=== PATIENT | male | born 1990 | race African-American/Black ===

== ENCOUNTER 2016-10-07 11:47 | Observation (INO) | payer OTHER ==
[2016-10-07] MEDS ORDERED: Aspirin Low Dose CHEW TAB* 81 MG PO ONE (12:02)
[2016-10-07 12:20] LABS: Hematocrit 41 % (42-52); Hemoglobin 13.2 g/dl (14.0-18.0); Mean Corpuscular HGB Conc 32 g/dl (31-36); Mean Corpuscular Hemoglobin 28 pg (27-31); Mean Corpuscular Volume 86 fL (80-94); Mean Platelet Volume 9 um3 (7.4-10.4); Red Blood Count 4.73 10^6/ul (4.0-5.4); Red Cell Distribution Width 12 % (10.5-15); White Blood Count 6.2 10^3/ul (3.5-10.8)
[2016-10-07 12:37] LABS: Albumin 4.5 g/dL (3.2-5.2); BUN/Creatinine Ratio 13.6 (8-20); Calcium 9.5 mg/dL (8.6-10.3); EGFR African American 89.8 (>60); EGFR Non-African American 69.8 (>60); Globulin 2.9 g/dL (2-4); Magnesium 2.1 mg/dL (1.9-2.7); Potassium 4.4 mmol/L (3.5-5.0); Total Bilirubin 0.6 mg/dL (0.2-1.0); Total Protein 7.4 g/dL (6.4-8.9)
--- NOTE | 2016-10-07 12:48 | RAD ---
Indication: Chest pain. EKG changes. History of myocardial infarction. Comparison: No relevant prior exams available on the [facility] [place] for comparison. Technique: Upright AP 1250 hours Report: Accounting for superimposed soft tissues with hypertrophied pectoralis musculature or breast tissue the lungs and pleural spaces are clear. Negative for pneumothorax. The heart, pulmonary vasculature, and mediastinal contours are unremarkable. IMPRESSION: No evidence for acute intrathoracic disease.
[2016-10-07 13:17] LABS: T4 4.55 mcg/mL (6.09-12.23)
[2016-10-07 13:18] LABS: TSH (Thyroid Stimulating Horm) 1.22 mcIU/mL (0.34-5.60)
--- NOTE | 2016-10-07 18:14 | ED ---
Kyle Hummel Billy, scribed for Andrey Vazquez MD on 10/07/16 at 1210 . Complex/Multi-Sys Presentation - HPI Summary HPI Summary: Patient is a 26 year-old male coming to [facility] from skilled nursing for evaluation of an abnormal EKG. He is completely asymptomatic at this time, denying chest pain, shortness of breath, nausea, vomiting, or diaphoresis. He reports a previous RI approximately 2 months ago, where he was seen and treated at [facility]. He reports a family history of RI in his maternal uncle at age 38. - History Of Current Complaint Chief Complaint: EDChestPainROMI Time Seen by Provider: 10/07/16 12:02 Hx Obtained From: Patient Severity Currently: None Location: Negative Aggravating Factor(s): n/a Alleviating Factor(s): n/a Associated Signs And Symptoms: Negative: SOB, Chest Pain, Nausea, Vomiting, Diaphoresis - Allergies/Home Medications Allergies/Adverse Reactions: Allergies Allergy/AdvReac Type Severity Reaction Status Date / Time Aspirin [ASA] Allergy Unknown Verified 10/07/16 12:33 Reaction Details Shellfish Allergy Allergy Unknown Verified 10/07/16 12:33 Reaction Details Home Medications: Home Medications NK [No Home Medications Reported] 10/07/16 [History Confirmed 10/07/16] PMH/Surg Hx/FS Hx/Imm Hx Cardiovascular History: Reports: Hx Hypertension, Hx Myocardial Infarction Sensory History: Denies: Hx Deafness Opthamlomology History: Denies: Hx Legally Blind Infectious Disease History: No Infectious Disease History: Denies: Traveled Outside the [place] in Last 30 Days - Family History Known Family History: Positive: Cardiac Disease - Social History Alcohol Use: None Substance Use Type: Reports: None, Marijuana Smoking Status (MU): Current Every Day Smoker Review of Systems Negative: Skin Diaphoresis Negative: Chest Pain Negative: Shortness Of Breath Negative: Vomiting, Nausea Negative: Syncope All Other Systems Reviewed And Are Negative: Yes Physical Exam - Summary Physical Exam Summary: VITAL SIGNS: Reviewed. GENERAL: Patient is a well developed and nourished male who is lying comfortable in the stretcher. Patient is not in any acute respiratory distress. HEAD AND FACE: No signs of trauma. No ecchymosis, hematomas or skull depressions. No sinus tenderness. EYES: PERRLA, EOMI x 2, No injected conjunctiva, no nystagmus. EARS: Hearing grossly intact. Ear canals and tympanic membranes are within normal limits. MOUTH: Oropharynx within normal limits. NECK: Supple, trachea is midline, no adenopathy, no JVD, no carotid bruit, no c- spine tenderness, neck with full ROM. CHEST: Symmetric, no tenderness at palpation LUNGS: Clear to auscultation bilaterally. No wheezing or crackles. CVS: Regular rate and rhythm, S1 and S2 present, no murmurs or gallops appreciated. ABDOMEN: Soft, non-tender. No signs of distention. No rebound no guarding, and no masses palpated. Bowel sounds are normal. EXTREMITIES: FROM in all major joints, no edema, no cyanosis or clubbing. NEURO: Alert and oriented x 3. No acute neurological deficits. Speech is normal and follows commands. SKIN: Dry and warm Triage Information Reviewed: Yes Vital Signs On Initial Exam: Initial Vitals Temp Pulse Resp BP Pulse Ox 98.8 F 65 20 116/87 98 10/07/16 11:59 10/07/16 11:59 10/07/16 11:59 10/07/16 11:59 10/07/16 11:59 Vital Signs Reviewed: Yes - [place] Coma Scale Coma Scale Total: 15 Diagnostics - Vital Signs Vital Signs Temp Pulse Resp BP Pulse Ox 10/07/16 12:01 98.8 F 62 20 116/87 99 10/07/16 11:59 98.8 F 65 20 116/87 98 - Laboratory Lab Results: Lab Results 10/07/16 10/07/16 10/07/16 Range/Units 12:07 12:07 12:07 WBC 6.2 (3.5-10.8) 10^3/ul RBC 4.73 (4.0-5.4) 10^6/ul Hgb 13.2 L (14.0-18.0) g/dl Hct 41 L (42-52) % MCV 86 (80-94) fL MCH 28 (27-31) pg MCHC 32 (31-36) g/dl RDW 12 (10.5-15) % Plt Count 190 (150-450) 10^3/ul MPV 9 (7.4-10.4) um3 Neut % (Auto) 46.4 (38-83) % Lymph % (Auto) 40.2 (25-47) % [place] % (Auto) 10.1 H (1-9) % Eos % (Auto) 2.5 (0-6) % Baso % (Auto) 0.8 (0-2) % Absolute Neuts (auto) 2.9 (1.5-7.7) 10^3/ul Absolute Lymphs (auto) 2.5 (1.0-4.8) 10^3/ul Absolute Monos (auto) 0.6 (0-0.8) 10^3/ul Absolute Eos (auto) 0.2 (0-0.6) 10^3/ul Absolute Basos (auto) 0 (0-0.2) 10^3/ul Absolute Nucleated RBC 0.01 10^3/ul Nucleated RBC % 0.2 Sodium 139 (133-145) mmol/L Potassium 4.4 (3.5-5.0) mmol/L Chloride 108 (101-111) mmol/L Carbon Dioxide 24 (22-32) mmol/L Anion Gap 7 (2-11) mmol/L BUN 17 (6-24) mg/dL Creatinine 1.25 H (0.67-1.17) mg/dL Est GFR ( Amer) 89.8 (>60) Est GFR (Non-Af Amer) 69.8 (>60) BUN/Creatinine Ratio 13.6 (8-20) Glucose 80 (70-100) mg/dL Lactic Acid 1.3 (0.5-2.0) mmol/L Calcium 9.5 (8.6-10.3) mg/dL Magnesium 2.1 (1.9-2.7) mg/dL Total Bilirubin 0.60 (0.2-1.0) mg/dL AST 55 H (13-39) U/L ALT 38 (7-52) U/L Alkaline Phosphatase 64 (34-104) U/L CK-MB (CK-2) 10.2 H (0.6-6.3) ng/mL Myoglobin 140.7 H (17.4-105.7) ng/mL Troponin I 0.00 (<0.04) ng/mL B-Natriuretic Peptide ( - 100) pg/mL Total Protein 7.4 (6.4-8.9) g/dL Albumin 4.5 (3.2-5.2) g/dL Globulin 2.9 (2-4) g/dL Albumin/Globulin Ratio 1.6 (1-3) TSH 1.22 (0.34-5.60) mcIU/mL Thyroxine (T4) 4.55 L (6.09-12.23) mcg/mL // Range/Units 12:07 WBC (3.5-10.8) 10^3/ul RBC (4.0-5.4) 10^6/ul Hgb (14.0-18.0) g/dl Hct (42-52) % MCV (80-94) fL MCH (27-31) pg MCHC (31-36) g/dl RDW (10.5-15) % Plt Count (150-450) 10^3/ul MPV (7.4-10.4) um3 Neut % (Auto) (38-83) % Lymph % (Auto) (25-47) % [place] % (Auto) (1-9) % Eos % (Auto) (0-6) % Baso % (Auto) (0-2) % Absolute Neuts (auto) (1.5-7.7) 10^3/ul Absolute Lymphs (auto) (1.0-4.8) 10^3/ul Absolute Monos (auto) (0-0.8) 10^3/ul Absolute Eos (auto) (0-0.6) 10^3/ul Absolute Basos (auto) (0-0.2) 10^3/ul Absolute Nucleated RBC 10^3/ul Nucleated RBC % Sodium (133-145) mmol/L Potassium (3.5-5.0) mmol/L Chloride (101-111) mmol/L Carbon Dioxide (22-32) mmol/L Anion Gap (2-11) mmol/L BUN (6-24) mg/dL Creatinine (0.67-1.17) mg/dL Est GFR ( Amer) (>60) Est GFR (Non-Af Amer) (>60) BUN/Creatinine Ratio (8-20) Glucose (70-100) mg/dL Lactic Acid (0.5-2.0) mmol/L Calcium (8.6-10.3) mg/dL Magnesium (1.9-2.7) mg/dL Total Bilirubin (0.2-1.0) mg/dL AST (13-39) U/L ALT (7-52) U/L Alkaline Phosphatase (34-104) U/L CK-MB (CK-2) (0.6-6.3) ng/mL Myoglobin (17.4-105.7) ng/mL Troponin I (<0.04) ng/mL B-Natriuretic Peptide 18 ( - 100) pg/mL Total Protein (6.4-8.9) g/dL Albumin (3.2-5.2) g/dL Globulin (2-4) g/dL Albumin/Globulin Ratio (1-3) TSH (0.34-5.60) mcIU/mL Thyroxine (T4) (6.09-12.23) mcg/mL Result Diagrams: 10/07/16 12:07 10/07/16 12:07 Lab Statement: Any lab studies that have been ordered have been reviewed, and results considered in the medical decision making process. - Radiology CXR Xray Interpretation: No Acute Changes Radiology Interpretation Completed By: Radiologist - EKG 1145 EKG Interpretation: sinus bradycardia 59 bpm; ST elevation V2, V3, V4; TWI in II and aVF Re-Evaluation - Re-Evaluation First Eval Re-Evaluation Time: 16:38 Change: Unchanged Comment: He continues to be asymptomatic. Labs reviewed, course of treatment discussed. Complex Multi-Symp Course/Dx Assessment/Plan: Patient is a 26 year-old male coming to [facility] from skilled nursing for evaluation of an abnormal EKG. He is completely asymptomatic at this time, denying chest pain, shortness of breath, nausea, vomiting, or diaphoresis. He reports a previous RI approximately 2 months ago, where he was seen and treated at [facility]. He reports a family history of RI in his maternal uncle at age 38. Test results WNL except for mild anemia, creatinine of 1.25, myoglobin of 140.7, CK-MB of 10.2, and trop of 0.00. TSH is 4.55. EKG shows ALEXANDER in V2-V4. CXR shows no acute pathology. Patient continues to be asymptomatic without any chest pain. I ran the case with Dr. Green and he thinks that he has no STEMI. Therefore, I did a second troponin 4 hours later which came out to be 0.05. At this point, I discussed with Dr. Green again, and he still does not believe that the patient has STEMI, therefore I discussed the case with Dr. Cota who accepted the patient for admission. He continues to be asymptomatic without any CP, SOB, or palpitations. No dizziness or diaphoresis. The patient is lying comfortably in the stretcher. - Diagnoses Differential Diagnoses/HQI/PQRI: Cardiac Ischemia Provider Diagnoses: increased troponin r/o ACS - Physician Notifications Discussed Care Of Patient With: Dr. Green (interventionalist) at 1205: requested previous EKG from [facility]. Dr. Cota ( hospitalist) at 1630: speak with Dr. Green, and in the meantime, repeat troponin. Dr. Green (interventionalist) at 1656: admit to hospitalist. Dr. Cota (hospitalist) at 1657: accepts admission. Discharge - Discharge Plan Condition: Stable Disposition: ADMITTED TO [facility] Referrals: Tyrone GARCIA,Catherine Blankenship [Primary Care Provider] - The documentation as recorded by the Kyle guevara Billy accurately reflects the service I personally performed and the decisions made by me, Andrey Vazquez MD.
[2016-10-07] MEDS ORDERED: NS 0.9% 1000 ML* 1,000 ML IV ONE (19:00)
[2016-10-07] MEDS ORDERED: Ondansetron INJ* 2 MG/ML VIAL IV PRN (19:35)
[2016-10-07] MEDS ORDERED: Acetaminophen TAB* 325 MG PO PRN (19:35)
[2016-10-07] MEDS: NS 0.9% 1000 ML* 1,000 ML IV SCH (21:45)
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
[2016-10-08] MEDS: NS 0.9% 1000 ML* 1,000 ML IV SCH ×2 (06:07→13:25)
[2016-10-08 06:44] LABS: BUN/Creatinine Ratio 11.4 (8-20); Calcium 8.6 mg/dL (8.6-10.3); EGFR African American 91.5 (>60); EGFR Non-African American 71.1 (>60); Potassium 3.9 mmol/L (3.5-5.0)
[2016-10-08 06:47] LABS: Troponin I 0.01 ng/mL (<0.04)
[2016-10-08 12:55] VITALS: BP 105/63
--- NOTE | 2016-10-09 02:24 | DS ---
DISCHARGE SUMMARY: DATE OF ADMISSION: 10/07/16 DATE OF DISCHARGE: 10/08/16 PRIMARY CARE PROVIDER: Catherine Hansen NP PRINCIPAL DIAGNOSES: 1. Mild rhabdomyolysis. 2. Abnormal EKG. SECONDARY DIAGNOSIS: None. DISCHARGE MEDICATIONS: None. HOSPITAL COURSE: Mr. Woodward is a 26-year-old male, currently incarcerated at [facility], who underwent a routine physical at [facility] and was found to have an abnormal EKG concerning for ST segment elevation and was sent to the emergency room for evaluation despite being completely asymptomatic. In the ER, the patient had again another EKG that showed ST segment elevations in the anterolateral leads. The patient is 100% chest pain free. The patient had 3 negative troponins. In the ER; however, the patient was found to have a mildly elevated CPK of 1912. Given his extreme physical exertion at [facility], the decision was made to admit him and hydrate him aggressively for treatment of mild rhabdomyolysis. The patient received aggressive IV fluid hydration overnight. In the morning of 10/08/16, his CPK was down to 1223. He does have a mildly elevated creatinine, though the patient has a high amount of muscle mass and I suspect this is why his creatinine is elevated as well as partly related to his CPK. The patient will continue on IV hydration until he leaves; however, he is stable to return to [facility] today. I do not believe that the abnormal EKG represents anything serious at this point. The patient states that he had a cardiac catheterization at [facility] in July of this year; however, with two attempts to contact [facility], they did not find any records or evidence that the patient was actually seen there. The patient again states that he was at [facility] and underwent cardiac catheterization; however, I cannot find these records anywhere. It would be interesting and important to obtain these records for any future events that may occur. Again at this point, the patient is stable for discharge home. On the day of admission, the patient is sitting up in bed, in no acute distress. His cardiac exam reveals a normal S1, S2. Regular rate and rhythm. His lungs are clear to auscultation bilaterally. His abdomen is soft. Bowel sounds are present. There is no abdominal distention or tenderness upon palpation. The patient has no lower extremity edema. FOLLOWUP CONCERNS: The patient is being discharged back to [facility] today, 10/08/16. ACTIVITY LEVEL: As tolerated. DIET: Regular. CONDITION ON DISCHARGE: Stable. TIME SPENT: Twenty-five minutes was spent discharging this patient. CC: Catherine Hansen NP * [id number]/[facility] #: [id number] MTDD
== END 2016-10-08 16:37 ==
LOC: ED 11:47 → MEDTELE 20:06
PROVIDERS: ADMIT Hospitalist; ATTEND Hospitalist
DX: M62.82 Rhabdomyolysis (principal); R94.31 Abnormal electrocardiogram [ECG] [EKG]; Z98.61 Coronary angioplasty status; R94.4 Abnormal results of kidney function studies; Z88.6 Allergy status to analgesic agent; F17.210 Nicotine dependence, cigarettes, uncomplicated
CPT/HCPCS: 36415; 71010; 80048; 80053; 82550; 82553; 83605; 83735; 83874; 83880; 84436; 84443; 84484; 85025; 93005; 96360; 96361; 99285; 99406; A9270-GY; G0378